=== PATIENT | female | born 1965 | race Caucasian/White ===

== ENCOUNTER → 2018-11-24 | Outpatient (CLI) | payer MEDICARE, OTHER ==
[~2018-11-24] MED LIST: 0.9 % SODIUM CHLORIDE 10 ML VIAL ONE; DEXAMETHASONE SOD PHOS 10 MG/ML VIAL ONE; IOHEXOL 300 MG/ML 50 ML VIAL. ONE; LIDOCAINE 1% PF 30 ML VIAL. ONE
== END | disposition home or self-care (01) ==
LOC: SURG 11:30
PROVIDERS: ATTEND Anesthesiology Pain Medicine
DX: M54.12 Radiculopathy, cervical region (principal); I10 Essential (primary) hypertension; E78.00 Pure hypercholesterolemia, unspecified; I25.10 Atherosclerotic heart disease of native coronary artery without angina pectoris; I25.2 Old myocardial infarction; E11.9 Type 2 diabetes mellitus without complications; G47.30 Sleep apnea, unspecified; Z98.51 Tubal ligation status; M19.90 Unspecified osteoarthritis, unspecified site; Z87.01 Personal history of pneumonia (recurrent); Z98.84 Bariatric surgery status; Z95.5 Presence of coronary angioplasty implant and graft; Z79.899 Other long term (current) drug therapy; F17.210 Nicotine dependence, cigarettes, uncomplicated; Z88.5 Allergy status to narcotic agent; Z88.8 Allergy status to other drugs, medicaments and biological substances; Z79.84 Long term (current) use of oral hypoglycemic drugs
CPT/HCPCS: 62321; J1100; J2001; Q9967

== ENCOUNTER 2021-04-04 16:20 | Emergency (ER) | payer MEDICARE, OTHER ==
[~2021-04-04] VITALS: Ht 157.5 cm; Wt 70.0 kg
[~2021-04-04 16:20] MED LIST changes: -0.9 % SODIUM CHLORIDE 10 ML VIAL ONE; +CALC500T54 PO; +CARV6.25 PO; +CLON0.5T4 PO; +CLOP75TA PO; -DEXAMETHASONE SOD PHOS 10 MG/ML VIAL ONE; +EZET10TA20 PO; +FOLI100T PO; -IOHEXOL 300 MG/ML 50 ML VIAL. ONE; +LEVO88TA4 PO; -LIDOCAINE 1% PF 30 ML VIAL. ONE; +LISI2.5T PO; +OMEP40CA7 PO; +SUCR1TAB35 PO
[2021-04-04 16:33] VITALS: BP 143/55
[2021-04-04] MEDS ORDERED: CEPH500T PO (16:58)
--- NOTE | 2021-04-04 16:58 | PHYS DOC ---
Past History Additional Past Medical Histor: Cardiac Past Surgical History: Coronary Bypass Surgery Alcohol Use: None General Adult EDM: Chief Complaint: SKIN PROBLEM HPI: HPI: 55-year-old female presents with right forearm pain and rash. The patient had a colonoscopy and EGD earlier in the week. She has had area of firmness and redness on her right forearm where the IV was placed. The redness started about the size of a quarter but is now expanded to the 3 cm wide by 6 cm long. It is mildly erythematous compared to the surrounding skin. She came in to make sure that this was normal. She has 2 other venipuncture sites with a attempted to get the IV on the same arm. Patient denies fever or chills. Review of Systems: Review of Systems: Constitutional: Denies fever or chills Eyes: Denies change in visual acuity HENT: Denies nasal congestion or sore throat Respiratory: Denies cough or shortness of breath Cardiovascular: Denies chest pain or edema GI: Denies abdominal pain, nausea, vomiting, bloody stools or diarrhea : Denies dysuria Musculoskeletal: Denies back pain or joint pain Integument: Rash, mass right forearm Neurologic: Denies headache, focal weakness or sensory changes Endocrine: Denies polyuria or polydipsia Lymphatic: Denies swollen glands Psychiatric: Denies depression or anxiety Allergies: Allergies: Allergies Coded Allergies Type Severity Reaction Last Updated Verified codeine Allergy Unknown 11/01/19 Yes isoniazid Allergy Unknown 11/01/19 Yes metformin Allergy Unknown 11/01/19 Yes Physical Exam: PE: Constitutional: Well developed, well nourished, no acute distress, non-toxic appearance. [] HENT: Normocephalic, atraumatic, bilateral external ears normal, oropharynx moist, no oral exudates, nose normal. [] Eyes: PERRLA, EOMI, conjunctiva normal, no discharge. [] Neck: Normal range of motion, no tenderness, supple, no stridor. [] Cardiovascular:Heart rate regular rhythm, no murmur [] Lungs & Thorax: Bilateral breath sounds clear to auscultation [] Abdomen: Bowel sounds normal, soft, no tenderness, no masses, no pulsatile masses. [] Skin: Palpable cord subcutaneous on the right anterior forearm. Warm, erythematous area of skin 3 cm x 6 cm. [] Back: No tenderness, no CVA tenderness. [] Extremities: No tenderness, no cyanosis, no clubbing, ROM intact, no edema. [] Neurologic: Alert and oriented X 3, normal motor function, normal sensory function, no focal deficits noted. [] Psychologic: Affect normal, judgement normal, mood normal. [] Current Patient Data: Vital Signs: Vital Signs Date Time Temp Pulse Resp B/P (MAP) Pulse Ox O2 Delivery O2 Flow Rate FiO2 04/04/21 16:33 98.2 70 16 143/55 99 Room Air EKG: EKG: [] Radiology/Procedures: Radiology/Procedures: [] Heart Score: C/O Chest Pain: N/A Risk Factors: Risk Factors: DM, Current or recent (<one month) smoker, HTN, HLP, family history of CAD, obesity. Risk Scores: Score 0 - 3: 2.5% MACE over next 6 weeks - Discharge Home Score 4 - 6: 20.3% MACE over next 6 weeks - Admit for Clinical Observation Score 7 - 10: 72.7% MACE over next 6 weeks - Early Invasive Strategies Course & Med Decision Making: Course & Med Decision Making Pertinent Labs and Imaging studies reviewed. (See chart for details) Based on my exam, I am concerned for cellulitis. I also believe that she has a superficial thrombus from the vena puncture. Explained to her that this was not dangerous and would break down on its own. I will place her on Keflex for 7 days. We will give the first dose in the ED. Patient states verbal understanding. She is stable for discharge at this time. [] Dragon Disclaimer: Dragon Disclaimer: This electronic medical record was generated, in whole or in part, using a voice recognition dictation system. Departure Departure: Impression: Primary Impression: Cellulitis of forearm, right Disposition: HOME / SELF CARE / HOMELESS Condition: STABLE Referrals: RENAE FONTAINE MD (PCP) Patient Instructions: Cellulitis, [id number] Scripts Cephalexin (CEPHALEXIN) 500 Mg Tablet 1 TAB PO TID for cellulitis for 7 Days, #21 TAB Prov: ELLIOTT CHAVEZ DO 04/04/21 ELLIOTT CHAVEZ DO Apr 04, 2021 16:58
[2021-04-04] MEDS ORDERED: CEPHALEXIN 250 MG CAPSULE PO ONE (17:00)
[2021-04-04] MEDS ORDERED: CEPHALEXIN 250 MG CAPSULE ONE (17:02)
== END 2021-04-04 17:05 | disposition home or self-care (01) ==
LOC: ER 16:20
DX: L03.113 Cellulitis of right upper limb (principal); Z95.1 Presence of aortocoronary bypass graft; Z88.5 Allergy status to narcotic agent; Z88.8 Allergy status to other drugs, medicaments and biological substances
CPT/HCPCS: 99283

== ENCOUNTER 2021-06-18 12:42 | Emergency (ER) | payer MEDICARE, OTHER ==
[~2021-06-18] VITALS: Ht 162.6 cm; Wt 69.0 kg
[~2021-06-18 12:42] MED LIST changes: +CEPH500T PO; -LISI2.5T PO; +LISI2.5T12 PO
[2021-06-18 13:12] VITALS: BP 121/62
[2021-06-18] MEDS ORDERED: ORPH-16 PO (13:36)
[2021-06-18] MEDS ORDERED: PRED20TA PO (13:36)
[2021-06-18] MEDS ORDERED: HYOS0.1265 SL (13:36)
--- NOTE | 2021-06-18 13:37 | PHYS DOC ---
Past History Additional Past Medical Histor: Cardiac Past Surgical History: Coronary Bypass Surgery, Other Additional Past Surgical Histo: BARIATRIC SURGERY Alcohol Use: None General Adult EDM: Chief Complaint: SHOULDER INJURY HPI: HPI: Patient is a [age] year old [sex] who presents with [] Review of Systems: Review of Systems: Constitutional: Denies fever or chills Eyes: Denies change in visual acuity HENT: Denies nasal congestion or sore throat Respiratory: Denies cough or shortness of breath Cardiovascular: Denies chest pain or edema GI: Denies abdominal pain, nausea, vomiting, bloody stools or diarrhea : Denies dysuria Musculoskeletal: Denies back pain or joint pain Integument: Denies rash Neurologic: Denies headache, focal weakness or sensory changes Endocrine: Denies polyuria or polydipsia Lymphatic: Denies swollen glands Psychiatric: Denies depression or anxiety Allergies: Allergies: Allergies Coded Allergies Type Severity Reaction Last Updated Verified codeine Allergy Unknown 11/01/19 Yes isoniazid Allergy Unknown 11/01/19 Yes metformin Allergy Unknown 11/01/19 Yes Physical Exam: PE: Constitutional: Well developed, well nourished, no acute distress, non-toxic appearance. [] HENT: Normocephalic, atraumatic, bilateral external ears normal, oropharynx moist, no oral exudates, nose normal. [] Eyes: PERRLA, EOMI, conjunctiva normal, no discharge. [] Neck: Normal range of motion, no tenderness, supple, no stridor. [] Cardiovascular:Heart rate regular rhythm, no murmur [] Lungs & Thorax: Bilateral breath sounds clear to auscultation [] Abdomen: Bowel sounds normal, soft, no tenderness, no masses, no pulsatile masses. [] Skin: Warm, dry, no erythema, no rash. [] Back: No tenderness, no CVA tenderness. [] Extremities: No tenderness, no cyanosis, no clubbing, ROM intact, no edema. [] Neurologic: Alert and oriented X 3, normal motor function, normal sensory function, no focal deficits noted. [] Psychologic: Affect normal, judgement normal, mood normal. [] Current Patient Data: Vital Signs: Vital Signs Date Time Temp Pulse Resp B/P (MAP) Pulse Ox O2 Delivery O2 Flow Rate FiO2 06/18/21 13:12 97.2 74 16 121/62 (81) 97 EKG: EKG: [] Radiology/Procedures: Radiology/Procedures: [] Heart Score: Risk Factors: Risk Factors: DM, Current or recent (<one month) smoker, HTN, HLP, family history of CAD, obesity. Risk Scores: Score 0 - 3: 2.5% MACE over next 6 weeks - Discharge Home Score 4 - 6: 20.3% MACE over next 6 weeks - Admit for Clinical Observation Score 7 - 10: 72.7% MACE over next 6 weeks - Early Invasive Strategies Course & Med Decision Making: Course & Med Decision Making Pertinent Labs and Imaging studies reviewed. (See chart for details) [] Dragon Disclaimer: [employer] Disclaimer: This electronic medical record was generated, in whole or in part, using a voice recognition dictation system. Departure Departure: Impression: Primary Impression: Shoulder pain, left Qualified Codes: M25.512 - Pain in left shoulder; G89.29 - Other chronic pain Additional Impressions: Abdominal pain Qualified Codes: R10.12 - Left upper quadrant pain Hx of ulcerative colitis Disposition: HOME / SELF CARE / HOMELESS Condition: STABLE Referrals: RENAE FONTAINE MD (PCP) HAYDEN WALTER MD Patient Instructions: Abdominal Pain (Nonspecific), Shoulder Pain, [id number], Ulcerative Colitis Additional Instructions: Please follow-up with orthopedic surgeon and GI specialist regarding your conditions for further evaluation and treatment.. A referral for an revenue cycle specialist was provided. You may ice the shoulder 20 minutes on then take off for the next 20 minutes. R epeat several times daily for the next few days. You may also introduce heat as needed. You may also take previously prescribed pain medication as needed. Scripts Orphenadrine Citrate (ORPHENADRINE CITRATE) 100 Mg Tablet.er 1 TAB PO BID PRN for MUSCLE PAIN, #14 TAB 0 Refills Prov: SAPPHIRE BYRD DO 06/18/21 Hyoscyamine Sulfate (LEVSIN-SL) 0.125 Mg Tab.subl 0.125 MG SL Q4-6HRS PRN for PAIN, #30 TAB Prov: SAPPHIRE BYRD DO 06/18/21 Prednisone (PREDNISONE) 20 Mg Tablet 2 TAB PO DAILY for Inflammation, #8 TAB Start this medication tomorrow, 06/19/21 Prov: SAPPHIRE BYRD DO 06/18/21 SAPPHIRE BYRD DO Jun 18, 2021 13:37
[2021-06-18] MEDS: DEXAMETHASONE SOD PHOS 10 MG/ML VIAL. IM ONE (13:48)
[2021-06-18] MEDS: ORPHENADRINE CITRATE 60 MG/2 ML VIAL. IM ONE (13:48)
== END 2021-06-18 13:53 | disposition home or self-care (01) ==
LOC: ER 12:42
DX: M25.512 Pain in left shoulder (principal); G89.29 Other chronic pain; R10.12 Left upper quadrant pain; Z95.1 Presence of aortocoronary bypass graft; Z88.5 Allergy status to narcotic agent; Z88.8 Allergy status to other drugs, medicaments and biological substances
CPT/HCPCS: 96372; 99284; J1100; J2360

== ENCOUNTER → 2021-06-20 | Outpatient (CLI) | payer MEDICARE, OTHER ==
[2021-06-18 13:12] VITALS: BP 121/62
[~2021-06-20] MED LIST changes: +HYOS0.1265 SL; +ORPH-16 PO; +PRED20TA PO
--- NOTE | 2021-06-20 08:58 | RAD ---
EXAM: XR CHEST 2V 06/20/2021 8:32 AM CLINICAL INDICATION: Left chest was obtained COMPARISON: Chest radiograph 07/04/2015 TECHNIQUE: PA and lateral views of the chest FINDINGS: Changes of median sternotomy are redemonstrated. There is a coronary artery stent. Mild ca rdiomegaly is unchanged. Lungs are well-expanded and clear. No pleural effusion or pneumothorax. No a cute osseous abnormality. IMPRESSION: No acute cardiopulmonary abnormality. Electronically signed by: Natty Hugo MD (06/20/2021 8:56 AM) [id number]
== END ==
LOC: RAD 08:13
PROVIDERS: ATTEND Internal Medicine
DX: R07.81 Pleurodynia (principal); Z72.0 Tobacco use
CPT/HCPCS: 71046